=== PATIENT | male | born 1960 | race Asian ===

== ENCOUNTER 2022-10-23 17:34 | Inpatient (IN) | payer SELFPAY ==
[~2022-10-23] VITALS: Ht 177.8 cm; Wt 96.2 kg
[2022-10-23 17:36] VITALS: O2SAT 100
[2022-10-23] MEDS ORDERED: IBUPROFEN 400MG TABLET PO ONE (20:00)
[2022-10-23] MEDS ORDERED: CEFTRIAXONE 1GM PREMIX 50 ML IV ONE (21:15)
[2022-10-23] MEDS ORDERED: SODIUM CHLORIDE 0.9% 1000ML BAG (SEPSIS BOLUS) IV ONE (21:15)
[2022-10-23] MEDS ORDERED: AZITHROMYCIN 500MG/250ML 250 ML IV ONE (21:15)
[2022-10-23 21:39] LABS: BASOPHILS % 0.2 % (0.0-2.0); EOSINOPHILS % 1.9 % (0.0-5.0); HEMATOCRIT. 46.5 % (42.0-52.0); HEMOGLOBIN. 15.4 g/dL (14.0-18.0); LYMPHOCYTES % 23.9 % (20.0-50.0); MEAN CORPUSCULAR VOLUME 93.8 fL (80.0-94.0); MEAN PLATELET VOLUME 7.4 fl (7.4-10.4); MONOCYTES % 7.1 % (2.0-8.0); NEUTROPHILS % 66.9 % (40.0-76.0); PLATELET 302 x1000/uL (130-400); RED BLOOD CELL COUNT 4.96 mill/uL (4.7-6.1); RED CELL DISTRIBUTION WIDTH 14.4 % (11.6-14.6)
[2022-10-23 21:43] LABS: CHLORIDE 111 mEq/L (98-107)
[2022-10-24 05:00] VITALS: BP 151/79; PULSE 86; RESP 19; TEMP 97.5
[2022-10-24] MEDS ORDERED: ACETAMINOPHEN 325MG TABLET PO PRN (07:00)
[2022-10-24] MEDS ORDERED: GUAIFENESIN 200MG/10ML SUGAR FREE UDC PO PRN (07:00)
[2022-10-24] MEDS ORDERED: ONDANSETRON HCL 4MG/2ML INJ IV PRN (07:00)
[2022-10-24] MEDS ORDERED: HYDROCODONE/ACETAMINOPHEN 5/325MG TABLET PO PRN (07:00)
[2022-10-24] MEDS ORDERED: IPRATROPIUM/ALBUTEROL 0.5-3(2.5)MG/3ML NEB HHN PRN (07:00)
[2022-10-24 08:00] VITALS: BP 117/67; PULSE 90; RESP 18; TEMP 97.7
[2022-10-24] MEDS ORDERED: ENOXAPARIN 40MG/0.4ML SYR SUBCUT SCH (09:00)
[2022-10-24 12:00] VITALS: BP 141/87; PULSE 83; RESP 18; TEMP 97.7
[2022-10-24] MEDS ORDERED: AZIT500T8 MT (12:22)
[2022-10-24] MEDS ORDERED: BENZ100C86 MT (12:22)
[2022-10-24 12:49] VITALS: BP 117/67; PULSE 90; TEMP 97.7
[2022-10-24] MEDS ORDERED: CEFTRIAXONE 1,000 MG in DEXTROSE 5% WATER 50 ML IV SCH (21:00)
[2022-10-24] MEDS ORDERED: AZITHROMYCIN 500 MG in DEXT 5% WATER 250 ML IV SCH (21:00)
== END 2022-10-24 14:35 | disposition home or self-care (01) | DRG 133 ==
LOC: ER 17:34 → MICUSO 10-24 00:07 → 7WST 10-24 04:53
PROVIDERS: ADMIT Family Medicine Adult Medicine; ATTEND Family Medicine Adult Medicine
DX: J96.00 Acute respiratory failure, unspecified whether with hypoxia or hypercapnia (principal); I27.21 Secondary pulmonary arterial hypertension; J44.9 Chronic obstructive pulmonary disease, unspecified; I10 Essential (primary) hypertension; I25.10 Atherosclerotic heart disease of native coronary artery without angina pectoris; Z20.822 Contact with and (suspected) exposure to COVID-19; R91.8 Other nonspecific abnormal finding of lung field; F17.200 Nicotine dependence, unspecified, uncomplicated
CPT/HCPCS: 36415; 71045; 71250; 80053; 83605; 84145; 84484; 85025; 87426; 93970; 99285; C9803; J0456; J0696; J1650; J7030; J7060